=== PATIENT | female | born 2000 ===

== ENCOUNTER 2025-01-30 18:40 | Emergency (ER) | payer BC, SELFPAY ==
[2025-01-30 18:51] VITALS: BP 124/80; PULSE 93; RESP 16; TEMP 36.6; O2SAT 100
[2025-01-30 19:14] LABS: BEDSIDEPREGUCG Negative (Negative); EDUAAPPEAR Clear; EDUABILI Negative (Negative); EDUABLOOD Negative (Negative); EDUACOLOR1 Yellow; EDUAGLUCOSE Negative (Negative); EDUAKETONE Negative (Negative); EDUALEUKO Negative (Negative); EDUANITRATE Negative (Negative); EDUAPH 6.0; EDUAPROTEIN Negative (Negative); EDUASPGRAVITY 1.025; EDUAUROBILI 0.2
--- NOTE | 2025-01-30 19:33 | ED.FEMALEGU ---
HPI - Female Genitourinary General Chief complaint: Urogenital-Female Stated complaint: Irregular Period Time Seen by Provider: 01/30/25 19:20 Source: patient and RN notes reviewed Mode of arrival: ambulatory Limitations: no limitations History of Present Illness HPI Narrative: 25-year-old female presents Express Care complaining of irregular periods last 5 months. Patient said her last period was on January 15. Patient reports he is not currently sexually active does not believe she is . Patient denies any abdominal pain, vaginal bleeding, vaginal discharge nausea, vomiting, diarrhea, fevers, body aches, chills, or any other symptoms. Patient cannot get into her PCP tell July of 2025. Patient does not have an OBGYN. Patient denies any concerns for STIs. Related Data Home Medications ?Medication ?Instructions ?Recorded ?Confirmed ?Last Taken ?Type No Home Medications 01/30/25 01/30/25 Unknown History Allergies Allergy/AdvReac Type Severity Reaction Status Date / Time No Known Allergies Allergy Verified 01/30/25 19:04 Review of Systems Review of Systems: CONSTITUTIONAL: Denies fever, chills, or sweats. EYES: Denies visual changes, redness, or discharge. ENT: Denies rhinorrhea, congestion, sore throat, or otalgia. CARDIOVASCULAR: Denies chest pain, palpitations, or edema. RESPIRATORY: Denies cough or dyspnea. GASTROINTESTINAL: Denies abdominal pain, nausea, vomiting, or diarrhea. GENITOURINARY: Denies dysuria, frequency, hesitancy, vaginal discharge, vaginal bleeding, pelvic pain, or hematuria. Positive for irregular periods. SKIN: Denies rash or itching. MUSCULOSKELETAL: Denies back pain, joint pain, or myalgia. NEUROLOGIC: Denies headache, numbness, or weakness. PSYCHIATRIC: Denies anxiety or depression. All other systems reviewed are negative, except as documented in HPI. PMFSH Comments At the time of my signature, I reviewed and agree with the nursing past medical, surgical, social, and family history. There is no relevant family history pertinent to the patient complaint. Exam Narrative: GENERAL: This is a well-nourished, well-developed adult, in no apparent distress. They are non ill-appearing, nontoxic appearing. HEAD: normocephalic, atraumatic. EYES: Sclera clear/white. Conjunctiva normal. Vision is grossly intact. Extraocular movements intact EARS: External ears normal, . Hearing grossly intact. NOSE: External nose normal THROAT: Mucous membranes moist, NECK: Neck supple, CARDIOVASCULAR: Regular rate and rhythm RESPIRATORY: Respiratory rate normal, respiratory effort nonlabored, no respiratory distress GASTROINTESTINAL: Abdomen soft, non-tender, nondistended. SKIN: warm, Dry, intact with no suspicious lesions or rash, good texture and turgor. NEURO: awake, alert, and oriented to person, place and time. There were no obvious focal neurologic abnormalities. EXTREMITIES: No joint tenderness, effusion, or edema noted. Course Course Emergency Course: Portions of this record may have been created with voice recognition software Level of Care: Express Care Visit Vital Signs Vital signs: Vital Signs Temperature 97.9 F 01/30/25 18:51 Pulse Rate 93 01/30/25 18:51 Respiratory Rate 16 01/30/25 18:51 Blood Pressure 124/80 01/30/25 18:51 Pulse Oximetry 100 01/30/25 18:51 Temperature 97.9 F 01/30/25 18:51 Pulse Rate 93 01/30/25 18:51 Respiratory Rate 16 01/30/25 18:51 Blood Pressure 124/80 01/30/25 18:51 Pulse Oximetry 100 01/30/25 18:51 Reviewed MDM - Female Genitourinary MDM Narrative Medical decision making narrative: Urine dipstick negative for any evidence of infection. Patient is having no urinary symptoms. Urine test is negative. Patient is having irregular periods. Patient does not have an OBGYN, will refer patient to the on-call OBGYN for follow-up appointment. Discussed physical exam findings. Advised supportive measures and signs/symptoms to go to the ER. Pt is appropriate for outpt treatment and f/u. Differential Diagnosis Differential diagnosis: Likely urinary tract infection, dysmenorrhea and other (, irregular.) Lab Data Attestation: I reviewed the patient's lab results. Labs: Lab Results 01/30/25 Range/Units 19:12 POC Urine Color Yellow POC Urine Clarity Clear POC Urine pH 6.0 POC Ur Specif [place] 1.025 POC Urine Protein Negative (Negative) POC Ur Glucose (UA) Negative (Negative) POC Urine Ketones Negative (Negative) POC Urine Blood Negative (Negative) POC Urine Nitrite Negative (Negative) POC Urine Bilirubin Negative (Negative) POC Urine Urobilinogen 0.2 POC U Leukocyte Esteras Negative (Negative) POC Urine HCG, Qual Negative (Negative) Critical Care Time Critical Care Time Critical Care Time: No Discharge Plan Discharge Clinical Impression: Irregular periods Patient Disposition: Home Condition: Stable Instructions: Menorrhagia (ED) Additional Instructions: Your urine test is negative today. No evidence of infection a urine dipstick. Please follow-up with your OBGYN for further evaluation and management of your regular periods. You have been provided the on-call OBGYN. Call and schedule appointment. Follow-up with PCP as needed. Go to the ER if he develops severe abdominal pain, nausea, vomiting, fevers, pelvic pain, vaginal bleeding, vaginal discharge, or any serious concerns Patient Language: Korean Prescriptions: No Action No Home Medications Follow-up/Referrals: Garland Londono MD [Physician, SOCIAL MEDIA MARKETING ANALYST] PHYSICIAN,LIME MIXER TENDER [Primary Care Provider, Internal Medicine] Time of Disposition: 19:32
== END 2025-01-30 19:34 | disposition home or self-care (01) ==
DX: N92.6 Irregular menstruation, unspecified (principal)
CPT/HCPCS: 81003; 81025; 99202; G0463